=== PATIENT | male | born 1990 | race Two or more races ===

== ENCOUNTER → 2017-08-08 | Outpatient (CLI) | payer OTHER ==
[~2017-08-08] MED LIST: FLEXERIL PO; KETOPROFEN PO; NORCO 5/325 TAB1 TAB PO
--- NOTE | ~2017-08-08 | CR63 ---
[facility] A Service of [facility] & [facility] RADIOLOGY TEXT RESULTS PATIENT: MOJGAN RALPH LOCATION: [facility] : [birth year] UNIT #: [id number] AGE: [address]: Adelita Agosto MD SEX: M ORDER DR: [id number] [facility] [address] [facility] [place], [place] [address] [id number] O MR#: [id number] Acc #: [id number] NAME: MOJGAN RALPH : 1990 SEX: M STUDY DATE/TIME: 08/08/2017 18:59 UNIT: [facility] ROOM: STUDY DESCRIPTION: CR Chest 2 View Attending Physician: Adelita Agosto M.D. Ordering Physician: Adelita Agosto M.D. Primary Care Physician: Adelita Agosto M.D. MEDICAL IMAGING REPORT This report is preliminary unless electronic signature is present EXAM Chest x-ray, 08/08/2017. INDICATIONS Shortness of air with activity for 2 days. FINDINGS Two views of the chest were obtained. No comparison. Lung volumes are low but the lungs are clear. Heart is enlarged. No pneumothorax. IMPRESSION Mild cardiomegaly with a low volume inspiration. Dictated by... Nghia Ryder Jr., M.D. THIS IS AN ELECTRONICALLY VERIFIED REPORT Nghia Ryder Jr., M.D. at 08/08/2017 10:35 PM KAREN/anish TD: 08/08/2017 22:16 JOB #: [id number] MEDICAL IMAGING REPORT Page 1 of 1 COPY
== END | disposition home or self-care (01) ==
LOC: CRAD 17:00
DX: R06.02 Shortness of breath (principal); I51.7 Cardiomegaly
CPT/HCPCS: 71020